=== PATIENT | male | born 1965 | race Caucasian/White ===

== ENCOUNTER 2018-12-10 10:28 | Emergency (ER) | payer OTHER ==
[~2018-12-10] VITALS: Ht 185.4 cm; Wt 83.9 kg
[~2018-12-10 10:28] MED LIST: FLAGYL500 M1 PO
[2018-12-10] MEDS ORDERED: CYCLOGYL2 M1 OPHTHALMIC (11:30)
[2018-12-10] MEDS ORDERED: NORCO 5-325 TA1 EAC1 PO (11:30)
[2018-12-10] MEDS ORDERED: ERYTHROMYCIN E3.5 G2 OPHTHALMIC (11:30)
[2018-12-10 11:49] VITALS: BP 105/84
== END 2018-12-10 11:50 | disposition home or self-care (01) ==
LOC: M.ERS 10:28
DX: T15.01XA Foreign body in cornea, right eye, initial encounter (principal); W45.8XXA Other foreign body or object entering through skin, initial encounter; Y92.89 Other specified places as the place of occurrence of the external cause; Y93.89 Activity, other specified; Y99.8 Other external cause status

== ENCOUNTER 2019-02-25 13:21 | Emergency (ER) | payer OTHER ==
[~2019-02-25] VITALS: Ht 182.9 cm; Wt 81.7 kg
[~2019-02-25 13:21] MED LIST changes: +CYCLOGYL2 M1 OPHTHALMIC; +ERYTHROMYCIN E3.5 G2 OPHTHALMIC; +NORCO 5-325 TA1 EAC1 PO
[2019-02-25] MEDS ORDERED: MEDROLDOSEPACK PO (14:29)
[2019-02-25] MEDS ORDERED: NORCO 5-325 TA1 EAC1 PO (14:29)
[2019-02-25 14:44] VITALS: BP 106/68
== END 2019-02-25 14:45 | disposition home or self-care (01) ==
LOC: M.ERS 13:21
DX: M54.42 Lumbago with sciatica, left side (principal); F17.200 Nicotine dependence, unspecified, uncomplicated

== ENCOUNTER 2020-02-20 16:06 | Emergency (ER) | payer OTHER ==
[~2020-02-20] VITALS: Ht 185.4 cm; Wt 77.1 kg
[~2020-02-20 16:06] MED LIST changes: +MEDROLDOSEPACK PO
[2020-02-20 16:23] VITALS: BP 119/79
[2020-02-20] MEDS ORDERED: KEFLEX500 M1 PO (16:49)
[2020-02-20] MEDS ORDERED: TYLENOL WITH CO1 TA1 PO (16:49)
== END 2020-02-20 17:17 | disposition home or self-care (01) ==
LOC: M.ERS 16:06
DX: L03.114 Cellulitis of left upper limb (principal); F12.90 Cannabis use, unspecified, uncomplicated

== ENCOUNTER 2020-07-12 17:31 | Emergency (ER) | payer OTHER ==
[~2020-07-12] VITALS: Ht 185.4 cm; Wt 79.4 kg
[~2020-07-12 17:31] MED LIST changes: +KEFLEX500 M1 PO; +TYLENOL WITH CO1 TA1 PO
[2020-07-12 17:42] VITALS: BP 145/98
== END 2020-07-12 21:15 | disposition left against medical advice (07) ==
LOC: M.ERS 17:31
DX: Z53.21 Procedure and treatment not carried out due to patient leaving prior to being seen by health care provider (principal)

== ENCOUNTER 2021-08-07 10:41 | Emergency (ER) | payer OTHER ==
[~2021-08-07] VITALS: Ht 182.9 cm; Wt 79.4 kg
[2021-08-07 11:18] LABS: URINE BILIRUBIN NEGATIVE (Negative); URINE BLOOD TRACE (Negative); URINE CLARITY CLEAR; URINE COLOR YELLOW; URINE GLUCOSE-RANDOM NEGATIVE (Negative); URINE KETONES NEGATIVE (Negative); URINE LEUKOCYTES-REFLEX NEGATIVE (Negative); URINE NITRITE-REFLEX NEGATIVE (Negative); URINE PROTEIN NEGATIVE (Negative); URINE UROBILINOGEN 0.2 E.U./dl (0.2-1.0)
[2021-08-07 12:27] VITALS: BP 146/92
== END 2021-08-07 12:28 | disposition home or self-care (01) ==
LOC: M.ERS 10:41
PROVIDERS: Nurse Practitioner Family
DX: Z20.2 Contact with and (suspected) exposure to infections with a predominantly sexual mode of transmission (principal)